=== PATIENT | female | born 1965 | race Caucasian/White ===

== ENCOUNTER → 2017-05-15 | Outpatient (CLI) | payer BC ==
[~2017-05-15] MED LIST: ALLEGRA; ALLEGRA PO; ALLEGRA180 MG PO; ALLERGY INJECTIONS INJ; ALPRAZOLAM; ALPRAZOLAM PO; ALPRAZOLAM0.5 MG PO; ALTACE; ANTI INFLAM; BENADRYL PO; BIAXIN PO; CIPRO PO; COMPAZINE10 M1 PO; DISCONTINUED MED; EC-NAPROSYN500 MG PO; EPIPEN JR.0.15 MG/0. INJ; EPIPEN0.3 MG/0.1 IM; FISH OIL 1,0001 CAP PO; FLONASE16 GM; IMITREX; IMITREX PO; LEXAPRO; LEXAPRO20 MG PO; MEDROL PO; NORVASC; NORVASC PO; NORVASC10 MG PO; SIMVASTATIN40 MG PO; VICODIN PO; VYTORIN; VYTORIN 10/40 T1 TAB PO; ZOLOFT
--- NOTE | ~2017-05-15 | MY29 ---
[facility] A Service of [facility] & [facility] RADIOLOGY TEXT RESULTS PATIENT: JULIET BECKWITH LOCATION: [facility] : [birth year] UNIT #: [id number] AGE: [address]: Khalida Do APRN SEX: F ORDER DR: [id number] [facility] [address] [place], [place] [address] [id number] O MR#: [id number] Acc #: [id number] NAME: JULIET BECKWITH : 1965 SEX: F STUDY DATE/TIME: 05/15/2017 9:13 UNIT: [facility] ROOM: STUDY DESCRIPTION: [facility] SCREENING W/ CAD BILAT Attending Physician: Khalida Do A.P.R.N. Referring Physician: Khalida Do A.P.R.N. Ordering Physician: Khalida Do A.P.R.N. Primary Care Physician: Khalida Do A.P.R.N. MEDICAL IMAGING REPORT This report is preliminary unless electronic signature is present EXAM Digital screening mammogram 05/15/2017, [facility]. HISTORY 51 year old woman. Positive family history, grandmother. Annual screening. COMPARISON Comparison 06/08/2009, 09/04/2012, 02/11/2015. FINDINGS Digital imaging of each breast was completed utilizing screening protocol. Additional craniocaudal views with nipples and profile are included. Review includes FDA-approved CAD device. Breast parenchyma is heterogeneous with a fibronodular pattern noted in each breast. There is stable dominance again present in the right breast. There is no interval occurring mass. There are no suspicious microcalcifications and no architectural deformity. IMPRESSION Stable benign mammogram. Annual screening recommended. Patients over the age of 40 are entered into a reminder system with target due date for the next mammogram. A result letter will be sent to the patient. BIRADS: 2 Benign findings. Dictated by... Gabo B. Corona, M.D. THIS IS AN ELECTRONICALLY VERIFIED REPORT Gabo Corona M.D. at 05/15/2017 3:50 PM [facility] A Service of [facility] & [facility] RADIOLOGY TEXT RESULTS PATIENT: JULIET BECKWITH LOCATION: [facility] : [birth year] UNIT #: [id number] AGE: [address]: Khalida Do APRN SEX: F ORDER DR: Alysha TD: 05/15/2017 14:24 JOB #: [id number] MEDICAL IMAGING REPORT Page 1 of 1 COPY
== END | disposition home or self-care (01) ==
LOC: CWCC 08:45
DX: Z12.31 Encounter for screening mammogram for malignant neoplasm of breast (principal); Z80.3 Family history of malignant neoplasm of breast
CPT/HCPCS: G0202